=== PATIENT | female | born 1930 | race Asian ===

== ENCOUNTER 2017-03-08 14:23 | Emergency (ER) | payer MEDICARE, OTHER ==
[~2017-03-08] VITALS: Ht 165.1 cm; Wt 54.4 kg
--- NOTE | 2017-03-08 14:25 | Emergency Room Report ---
History of Present Illness General Chief Complaint: Multiple Trauma/Fall Source: Patient, EMS Present Illness HPI [id number] with alleged right mid-shaft fracture of right femur after accidental ground-level trip and fall. EMS noted obvious deformity to mid-shaft with shortening of leg. IM morphine given. Traction placed for leg with significant improvement in pain symptoms. Previous "knee plate replacement." Denies right hip pain, right lower extremity, ankle/foot pain Denies DM Denies ASA, AC. Allergies: Coded Allergies: No Known Allergies (Unverified , 03/08/17) Patient History Past Medical History: none Past Surgical History: none Pertinent Family History: none Social History: Denies: alcohol use, drug use, smoking Now: No Immunizations: UTD Reviewed Nursing Documentation: PMH: Agreed, PSxH: Agreed Nursing Documentation-PMH Past Medical History: No History, Except For Hx Hypertension: Yes History Of Psychiatric Problem: Yes - dementia Review of Systems All Other Systems: negative except mentioned in HPI Physical Exam Vital Signs Date Time Temp Pulse Resp B/P Pulse Ox O2 Delivery O2 Flow Rate FiO2 03/08/17 14:11 98.1 84 16 145/81 100 Room Air Sp02 EP Interpretation: reviewed, normal General Appearance: normal inspection, well appearing, no apparent distress, alert, GCS 15, non-toxic Head: normocephalic, atraumatic Eyes: bilateral eye EOMI, bilateral eye PERRL ENT: normal ENT inspection, hearing grossly normal, normal voice Neck: normal inspection, full range of motion, supple, no bony tend Respiratory: normal inspection, lungs clear, normal breath sounds, no respiratory distress, no retraction, no wheezing Cardiovascular #1: regular rate, rhythm, no edema, other - Brisk popliteal pulse palpated right side. Gastrointestinal: normal inspection, normal bowel sounds, non tender, soft, no guarding, no hernia Genitourinary: no CVA tenderness Musculoskeletal: normal inspection, back normal, normal range of motion, Lisa' s Sign negative, other - Right thigh with obvious deformity assisted. Compartments are soft, NT/ND. Neurologic: normal inspection, alert, oriented x3, responsive, data administrator III-XII nml as tested, speech normal Psychiatric: normal inspection, judgement/insight normal, mood/affect normal Medical Decision Making Medicare Attestation I Fox Martin MD hereby attest that the medical record entry for date of service, 08/12/16 accurately reflects signatures/notations that I made in my capacity as MD when I treated/diagnosed the above listed Medicare beneficiary. I attest that this information is true, accurate and complete to the best of my knowledge. I understand that any falsification, omission, or concealment of material fact may subject me to administrative, civil, or criminal liability. This patient warrants hospital admission for extreme of age and has a condition that cannot be treated as outpatient. Diagnostic Impression: Primary Impression: Fall Qualified Codes: W19.XXXA - Unspecified fall, initial encounter Additional Impression: Right femoral shaft fracture Qualified Codes: S72.301A - Unspecified fracture of shaft of right femur, initial encounter for closed fracture ER Course Right proximal femoral displaced/angulated fracture S/pright femoral surgical fixation Consulted Dr Paulino - recommends transfer to [facility] for higher level of care. Endorsed to Dr Wheeler for transfer at 445pm No acute lab abnormalities Compartment soft Low suspicion for compartment syndrome or intra-thigh bleed Last Vital Signs Date Time Temp Pulse Resp B/P Pulse Ox O2 Delivery O2 Flow Rate FiO2 03/08/17 14:11 98.1 84 16 145/81 100 Room Air Status: improved Disposition: ADMITTED INPATIENT Condition: Serious FOX MARTIN M.D. Mar 08, 2017 14:25
[2017-03-08] MEDS ORDERED: LISINOPRIL20 MG ORAL (14:28)
[2017-03-08] MEDS ORDERED: NEXIUM40 M2 ORAL (14:28)
[2017-03-08] MEDS ORDERED: ZOCOR20 M1 ORAL (14:28)
[2017-03-08] MEDS ORDERED: MILK OF MA400 MG/51 ORAL (14:28)
[2017-03-08] MEDS ORDERED: Bupivacaine 0.75% 30ml vial INJ ONE ×2 (14:51→15:30)
[2017-03-08 15:01] LABS: EOSINOPHILS % (AUTO) 1.3 % (0.0-3.0); LYMPHOCYTES % (AUTO) 37.2 % (20.0-45.0); MEAN CORPUSCULAR HEMOGLOBIN 29.3 PG (27.0-31.0); MEAN CORPUSCULAR HGB CONC 32.6 G/DL (32.0-36.0); MEAN CORPUSCULAR VOLUME 90 FL (80-99); MEAN PLATELET VOLUME 6.4 FL (6.5-10.1); MONOCYTES % (AUTO) 7.8 % (1.0-10.0); NEUTROPHILS % (AUTO) 52.7 % (45.0-75.0); PLATELET COUNT 275 K/UL (150-450); RED BLOOD COUNT 4.24 M/UL (4.20-5.40); RED CELL DISTRIBUTION WIDTH 12.3 % (11.6-14.8); WHITE BLOOD COUNT 8.1 K/UL (4.8-10.8)
[2017-03-08] MEDS ORDERED: fentaNYL 100 mcg/2 mL IV ONE ×2 (15:09→15:30)
[2017-03-08 15:13] LABS: ALANINE AMINOTRANSFERASE 9 U/L (3-33); ALBUMIN/GLOBULIN RATIO 1.4 (1.0-2.7); ANION GAP 16 (5-15); ASPARTATE AMINO TRANSFERASE 15 U/L (5-40); CALCIUM 9.8 mg/dL (8.6-10.2); CARBON DIOXIDE 23 mEQ/L (20-30); CHLORIDE 101 mEQ/L (98-107); CREATININE 0.8 mg/dL (0.5-0.9); HEMOLYSIS 9; POTASSIUM 3.7 mEQ/L (3.4-4.9); SODIUM 140 mEQ/L (135-145); TOTAL PROTEIN 7.7 g/dL (6.6-8.7)
[2017-03-08 15:21] VITALS: BP 118/69
[2017-03-08 15:23] LABS: CKMB < 1.5 ng/mL (< 3.8)
[2017-03-08] MEDS ORDERED: Lidocaine 1% MPF 10mg/ml 5ml INJ ONE (15:30)
[2017-03-08 18:25] VITALS: BP 136/78
--- NOTE | 2017-03-09 11:15 | Cardiology Report ---
APPROVED REPORT EKG Measurement Heart [id number] Normal sinus rhythm Normal ECG
== END 2017-03-08 18:15 | disposition short-term general hospital (02) ==
LOC: EDBD 14:23 → EMR 14:50 → EDBEDREQ 18:19
DX: S72.301A Unspecified fracture of shaft of right femur, initial encounter for closed fracture (principal); W01.0XXA Fall on same level from slipping, tripping and stumbling without subsequent striking against object, initial encounter; Y92.521 Bus station as the place of occurrence of the external cause; I10 Essential (primary) hypertension; F03.90 Unspecified dementia, unspecified severity, without behavioral disturbance, psychotic disturbance, mood disturbance, and anxiety
CPT/HCPCS: 36415; 71010; 72170; 73552; 80053; 82550; 82553; 85025; 93005; 96374; 96375; 99284; J2405; J3010; J3490